=== PATIENT | female | born 1990 | race Caucasian/White ===

== ENCOUNTER 2024-05-27 23:14 | Emergency (ER) | payer SELFPAY ==
[~2024-05-27] VITALS: Ht 162.6 cm; Wt 59.0 kg
[2024-05-27 23:19] VITALS: BP 91/45; PULSE 82; RESP 16; TEMP 97.9; O2SAT 97
[2024-05-28 00:23] LABS: BASOPHILS % 0.3 % (0.0-2.0); EOSINOPHILS % 0.4 % (0.0-5.0); LYMPHOCYTES % 24.6 % (20.0-50.0); MEAN CORPUSCULAR HEMOGLOBIN 29.6 pg (28.0-32.0); MEAN CORPUSCULAR HGB CONC 32.5 g/dL (31.0-37.0); MEAN CORPUSCULAR VOLUME 90.9 fL (81.0-99.0); MEAN PLATELET VOLUME 8.3 fl (7.4-10.4); MONOCYTES % 6.6 % (2.0-8.0); NEUTROPHILS % 68.1 % (40.0-76.0); PLATELET 180 x1000/uL (130-400); RED BLOOD CELL COUNT 4.72 mill/uL (4.2-5.4); RED CELL DISTRIBUTION WIDTH 12.9 % (11.6-14.6); WHITE BLOOD COUNT 6.8 x1000/uL (4.5-11.0)
[2024-05-28] MEDS: ONDANSETRON HCL 4MG/2ML INJ IV STA (00:23)
[2024-05-28] MEDS: SODIUM CHLORIDE 0.9% 1,000 ML IV ONE (00:23)
[2024-05-28 00:29] LABS: CHLORIDE 110 mEq/L (98-107); POTASSIUM 3.4 mEq/L (3.5-5.1); SODIUM 145 mEq/L (136-145)
[2024-05-28 00:30] LABS: CALCIUM 8.9 mg/dL (8.7-10.4); CARBON DIOXIDE 23 mEq/L (21-32)
[2024-05-28 00:35] LABS: CREATININE 0.8 mg/dL (0.6-1.0); GLUCOSE 87 mg/dL (70-105); UREA NITROGEN BLOOD 9 mg/dL (9-23)
[2024-05-28 00:36] LABS: ETHANOL BLOOD 299 mg/dL (<10)
== END 2024-05-28 03:08 | disposition home or self-care (01) ==
LOC: ER 23:14
DX: T51.0X1A Toxic effect of ethanol, accidental (unintentional), initial encounter (principal); R41.82 Altered mental status, unspecified; Y92.89 Other specified places as the place of occurrence of the external cause
CPT/HCPCS: 36415; 99283; 80048; 80320; 85025; 96361; 96374; J2405; J7030; G0480